=== PATIENT | male | born 1980 | race Caucasian/White ===

== ENCOUNTER 2023-07-10 11:58 | Emergency (ER) | payer OTHER ==
[2023-07-10 12:23] VITALS: TEMP 97.7; BMI 23.5
[2023-07-10] MEDS: LACTATED RINGERS SOLUTION 1000 ML INFUS.BAG IV ONE (13:00)
[2023-07-10 13:20] LABS: BASO % 0.6 % (0-2.0); EOS % 1.2 % (0-4.5); HEMATOCRIT 42.9 % (35.4-49); HEMOGLOBIN 14.9 GM/dL (11.7-16.9); LYMPH % 26.1 % (8-40); MCH 30.3 pg (25.7-33.7); MCHC 34.7 g/dl (32.0-35.9); MEAN CELL VOLUME 87.2 fl (80-96); MEAN PLT VOLUME 10.2 fl (7.5-11.1); MONO % 4.2 % (3.8-10.2); NEUT % 67.9 % (42.8-82.8); PLATELET COUNT 131 10^3/uL (134-434); RBC 4.92 M/mm3 (4.00-5.60); RDW 12.6 % (11.9-15.9); WHITE BLOOD COUNT 5.2 K/mm3 (4.0-10.0)
[2023-07-10 13:25] LABS: VENOUS BASE EXCESS -1.7 mmol/L (-2-2); VENOUS O2 SATURATION 49.5 % (70-80); VENOUS PCO2 44.4 mmHg (38-52); VENOUS PH 7.352 (7.310-7.410)
[2023-07-10 13:39] LABS: POTASSIUM 4.1 mmol/L (3.5-5.1)
[2023-07-10 13:42] LABS: ALBUMIN 4.1 g/dl (3.4-5.0); BLOOD UREA NITROGEN 17.9 mg/dL (7-18); CALCIUM 8.8 mg/dL (8.5-10.1)
[2023-07-10 13:44] LABS: CREATININE 0.7 mg/dL (0.55-1.3)
[2023-07-10 13:46] LABS: BILIRUBIN,TOTAL 0.5 mg/dL (0.2-1); TOT PROT 7.8 g/dl (6.4-8.2)
[2023-07-10 14:09] VITALS: BP 114/78; PULSE 72; RESP 18
== END 2023-07-10 14:10 | disposition home or self-care (01) ==
LOC: JER 11:58
DX: E11.65 Type 2 diabetes mellitus with hyperglycemia (principal); R35.89 Other polyuria; R82.4 Acetonuria
CPT/HCPCS: 36415; 80053; 82803; 82962; 85025; 99284-25